=== PATIENT | male | born 1960 | race Caucasian/White ===

== ENCOUNTER 2021-03-28 11:43 | Emergency (ER) | payer OTHER ==
[2021-03-28 12:11] VITALS: BP 140/113
--- NOTE | 2021-03-28 12:51 | ED Physician Documentation ---
History of Present Illness - Stated complaint Stated Complaint: HEAD PX/CONGESTION - Chief complaint Chief Complaint: Heent - History obtained from History obtained from: Patient - History of Present Illness Timing: Today Pain level max: 0 Pain level now: 0 - Additonal information Additional information: Patient is a 60-year-old male who presents to the emergency department with approximately 9 days of cough, congestion, sinus pressure, drainage and occasional chills. Sore throat as well. Has been taking Mucinex without relief. No difficulty breathing. No respiratory distress. He has had both his Covid vaccinations, Directa Plus. Patient has had sinus infections in the past and states that this feels similar. Yellow/green mucus. 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 Nothing makes it better or worse. Review of Systems Constitutional: denies: Fever, Chills Nose: reports: Congestion, Sinus pressure / pain GI: denies: Vomiting, Diarrhea Skin: denies: Rash Musculoskeletal: denies: Neck pain Neurologic: denies: Headache PD PAST MEDICAL HISTORY - Past Medical History Past Medical History: Yes Respiratory: Asthma - Present Medications Home Medications: Ambulatory Orders Medication Instructions Recorded Confirmed Amox/Clav 875/125 [Augmentin] 1 tab PO Q12H #20 tablet 03/28/21 Emtricitabine/Tenofovir (Tdf) 1 tab PO DAILY 03/28/21 03/28/21 [Emtricitabine-Tenofv 200-300Mg] - Allergies Allergies/Adverse Reactions: Allergies Allergy/AdvReac Type Severity Reaction Status Date / Time No Known Drug Allergies Allergy Verified 03/28/21 12:06 - Living Situation Living Situation: reports: With family Living Arrangement: reports: At home - Social History Does the pt smoke?: No Smoking Status: Never smoker PD ED PE NORMAL - Vitals Vital signs reviewed: Yes - General General: Alert and oriented X 3, No acute distress, Well developed/nourished - HEENT HEENT: PERRL, Moist mucous membranes, Other (Left tympanic membrane is normal. Right tympanic membrane is erythematous, but no fluid present.) - Neck Neck: Supple, no meningeal sign - Cardiac Cardiac: RRR, Strong equal pulses - Respiratory Respiratory: No respiratory distress, Clear bilaterally - Abdomen Abdomen: Soft, Non tender, Non distended - Derm Derm: Warm and dry - Neuro Neuro: Alert and oriented X 3 - Psych Psych: Normal mood, Normal affect Results - Vitals Vitals: Vital Signs - 24 hr 03/28/21 11:53 Temperature 36.9 C Heart Rate 96 Respiratory 18 Rate Blood Pressure 140/113 H O2 Saturation 99 Oxygen O2 Source Room air PD MEDICAL DECISION MAKING - ED course Complexity details: considered differential, d/w patient ED course: Patient is well-appearing, nontoxic. Afebrile. Covid testing performed. Will treat for sinusitis given duration of symptoms, asthma history and subjective fever/chills at home. Patient counseled regarding signs and symptoms for which I believe and urgent re-evaluation would be necessary. Patient with good understanding of and agreement to plan and is comfortable going home at this time This document was made in part using voice recognition software. While efforts are made to proofread this document, sound alike and grammatical errors may occur. Departure - Departure Disposition: 01 Home, Self Care Clinical Impression: Sinusitis Qualifiers: Sinusitis location: unspecified location Chronicity: acute Recurrence: non- recurrent Qualified Code(s): J01.90 - Acute sinusitis, unspecified Condition: Good Instructions: ED Sinusitis Abx Tx Follow-Up: Andrea Diaz MD [Primary Care Provider] - Within 1 week (if not better ) Prescriptions: Amox/Clav 875/125 [Augmentin] 1 tab PO Q12H #20 tablet Comments: Take all antibiotics until gone. Your covid test result will be on the patient portal on [email or web address] Follow up with your doctor for further care. Return if you worsen. Your prescription was sent to [facility] in [place]. Discharge Date/Time: 03/28/21 13:07
== END 2021-03-28 13:07 | disposition home or self-care (01) ==
LOC: ED 11:43
DX: J01.90 Acute sinusitis, unspecified (principal); Z20.822 Contact with and (suspected) exposure to COVID-19
CPT/HCPCS: 99283; 99284